=== PATIENT | female | born 1935 | race Caucasian/White ===

== ENCOUNTER 2018-06-21 18:29 | Emergency (ER) | payer MEDICARE ==
[2018-06-21] MEDS ORDERED: Promethazine HCl 25 MG/ML VIAL ONE (19:22)
[2018-06-21] MEDS ORDERED: Sodium Chloride 0.9% 1,000 ML ONE (19:22)
[2018-06-21] MEDS ORDERED: Ketorolac Tromethamine 30 MG/ML VIAL ONE (19:22)
--- NOTE | 2018-06-21 19:56 | CT ---
CT BRAIN 06/21/18 HISTORY: Headache. Noncontrast enhanced CT images of the brain is obtained from base of skull through the vertex. Brain and bone windows obtained. CT images of the brain demonstrate diffuse cortical atrophy and deep white matter ischemic changes. No evidence of acute intracranial masses, hemorrhages, or strokes seen. Ventricles are of normal size . IMPRESSION: Normal CT brain. POS: [facility]
[2018-06-21 20:25] LABS: #Basophils 0.1 thou/uL (0.0-0.2); #Eosinphils 0.1 thou/uL (0.0-0.7); #Lymphocytes 3.9 thou/uL (1.20-3.40); #Monocytes 0.7 thou/uL (0.11-0.59); #Neutrophils 6.8 thou/uL (1.40-6.50); %Basophils 0.9 % (0.0-1.0); %Eosinophils 0.9 % (0.0-10.0); %Lymphocytes 33.6 % (21.0-51.0); %Neutrophils 58.6 % (42.0-75.0); Mean Corpuscular HGB CONC 32.2 g/dL (32.0-36.0); Mean Corpuscular Hemoglobin 28.1 pg (27.0-31.0); Mean Corpuscular Volume 87.3 fL (78.0-98.0); Mean Platelet Volume 7.7 fL (7.4-10.4); Platelet Count 156 thou/uL (130-400); RBC Distribution Width 12.3 % (11.5-14.5); Red Blood Cell (RBC) Count 4.26 mill/uL (4.20-5.40); White Blood Cell (WBC) Count 11.7 thou/uL (4.8-10.8)
--- NOTE | 2018-06-21 20:26 | RAD ---
AP VIEW CHEST 06/21/18 AP view chest demonstrates the lungs to be well aerated. No evidence of active intrathoracic disease seen. No evidence of effusions, pneumonia or pneumothorax seen. IMPRESSION: Unremarkable AP view chest. POS: [facility]
[2018-06-21 20:31] LABS: Bilirubin Negative (Negative); Blood, Urine Negative (Negative); Clarity Clear (Clear); Glucose, Urine (Dipstick) Negative (Negative); Leukocyte Negative (Negative); Nitrite Negative (Negative); Protein, Urine (Dipstick) Negative (Neg-Trace); Urobilinogen 0.2 mg/dL (0.2-1.0)
[2018-06-21 20:36] LABS: ALT (SGPT) 15 U/L (8-55); AST (SGOT) 18 U/L (5-34); Albumin 4.6 g/dL (3.4-4.8); Alkaline Phosphatase 89 U/L (40-150); Anion Gap 17 mmol/L (10-20); BUN (Urea Nitrogen) 24 mg/dL (9.8-20.1); Bilirubin, Total 0.4 mg/dL (0.2-1.2); Calc. Creatinine Clearance 0 mL/min (70-130); Calcium 9.6 mg/dL (7.8-10.44); Carbon Dioxide 17 mmol/L (23-31); Chloride 97 mmol/L (98-107); Estimated GFR-MDRD 43; Glucose 96 mg/dL (83-110); Potassium 4.3 mmol/L (3.5-5.1); Protein, Total 7.6 g/dL (6.0-8.3); Sodium 127 mmol/L (136-145)
[2018-06-21] MEDS ORDERED: Acetaminophen 500 MG TAB ONE (22:19)
[2018-06-21 22:41] LABS: Anion Gap 14 mmol/L (10-20); BUN (Urea Nitrogen) 23 mg/dL (9.8-20.1); Calc. Creatinine Clearance 0 mL/min (70-130); Calcium 8.7 mg/dL (7.8-10.44); Carbon Dioxide 17 mmol/L (23-31); Chloride 102 mmol/L (98-107); Estimated GFR-MDRD 45; Glucose 113 mg/dL (83-110); Potassium 4.1 mmol/L (3.5-5.1); Sodium 129 mmol/L (136-145)
== END 2018-06-21 23:45 | disposition short-term general hospital (02) ==
LOC: NAV ERS 18:29
DX: E87.1 Hypo-osmolality and hyponatremia (principal); E87.2 Acidosis; R51 Headache; E03.9 Hypothyroidism, unspecified; I10 Essential (primary) hypertension; Z86.73 Personal history of transient ischemic attack (TIA), and cerebral infarction without residual deficits; F41.9 Anxiety disorder, unspecified; Z79.899 Other long term (current) drug therapy
CPT/HCPCS: 36415; 51701; 70450; 71045; 80053; 81003; 84484; 85025; 93005; 96361; 96365; 96375; A4353; J1885; J2550; J7050

== ENCOUNTER 2022-03-24 17:26 | Emergency (ER) | payer OTHER ==
[2022-03-24 18:45] LABS: #Basophils 0.1 thou/uL (0.0-0.2); #Eosinphils 0.1 thou/uL (0.0-0.7); #Lymphocytes 3.1 thou/uL (1.20-3.40); #Monocytes 0.6 thou/uL (0.11-0.59); #Neutrophils 5.6 thou/uL (1.40-6.50); %Lymphocytes 32.7 % (21.0-51.0); %Monocytes 6.4 % (0.0-10.0); %Neutrophils 58.9 % (42.0-75.0); Mean Corpuscular HGB CONC 32.7 g/dL (32.0-36.0); Mean Corpuscular Hemoglobin 29.8 pg (27.0-31.0); Mean Corpuscular Volume 91.4 fl (78.0-98.0); Mean Platelet Volume 7.2 fL (7.4-10.4); Platelet Count 213 10x3/uL (130-400); RBC Distribution Width 11.2 % (11.5-14.5); Red Blood Cell (RBC) Count 4.35 mill/uL (4.20-5.40); White Blood Cell (WBC) Count 9.5 10x3/uL (4.8-10.8)
[2022-03-24] MEDS ORDERED: Acetaminophen 500 MG TAB ONE (18:56)
[2022-03-24 19:13] LABS: SARS-CoV-2 NAA Rapid Test Not Detected (NotDetected)
[2022-03-24 19:25] LABS: ALT (SGPT) 12 U/L (8-55); AST (SGOT) 14 U/L (5-34); Albumin 4.5 g/dL (3.4-4.8); Alkaline Phosphatase 75 U/L (40-110); Anion Gap 17 mmol/L (10-20); BUN (Urea Nitrogen) 20 mg/dL (9.8-20.1); Bilirubin, Total 0.5 mg/dL (0.2-1.2); Calc. Creatinine Clearance 0 mL/min (70-130); Calcium 10.2 mg/dL (7.8-10.44); Carbon Dioxide 23 mmol/L (23-31); Chloride 97 mmol/L (98-107); Estimated GFR 36; Globulin 2.9 g/dL (2.4-3.5); Glucose 103 mg/dL (83-110); Potassium 3.8 mmol/L (3.5-5.1); Protein, Total 7.4 g/dL (5.8-8.1); Sodium 133 mmol/L (136-145)
[2022-03-24] MEDS ORDERED: Albuterol Sulfate 2.5 mg/0.5 ml Neb ONE (19:55)
[2022-03-24] MEDS ORDERED: Sodium Chloride 0.9% 1,000 ML ONE (19:55)
[2022-03-24 19:56] LABS: Bilirubin Negative (Negative); Blood, Urine Negative (Negative); Glucose, Urine (Dipstick) Negative (Negative); Ketone, Urine Negative (Negative); Leukocyte Small (Negative); Nitrite Negative (Negative); Protein, Urine (Dipstick) Negative (Neg-Trace); Specific Gravity, Urine 1.015 (1.005-1.030); Urobilinogen 0.2 mg/dL (Less than 2); pH, Urine 7.5 (5.0-9.0)
[2022-03-24 19:57] LABS: Clarity SL HAZY (Clear)
[2022-03-24 20:02] LABS: Renal Epithelial 0-3 HPF (None Seen); Squamous Epithelial 0-3 HPF (0-3); WBC/HPF 0-3 HPF (0-3)
== END 2022-03-24 22:29 | disposition home or self-care (01) ==
LOC: NAV ERS 17:26
DX: E86.9 Volume depletion, unspecified (principal); I10 Essential (primary) hypertension; E03.9 Hypothyroidism, unspecified; Z79.899 Other long term (current) drug therapy
CPT/HCPCS: 71045; 80053; 81003; 81015; 83605; 85025; 87040; 87086; 87804; 96360; J7050; J7611; U0002

== ENCOUNTER 2022-05-26 18:16 | Emergency (ER) | payer OTHER ==
[~2022-05-26 18:16] MED LIST: Iopamidol 370 76% 100 ML VIAL ONE
[2022-05-26 19:04] LABS: #Basophils 0.1 thou/uL (0.0-0.2); #Eosinphils 0.1 thou/uL (0.0-0.7); #Lymphocytes 2.9 thou/uL (1.20-3.40); #Monocytes 0.7 thou/uL (0.11-0.59); #Neutrophils 6.3 thou/uL (1.40-6.50); %Basophils 0.9 % (0.0-1.0); %Eosinophils 1.2 % (0.0-10.0); %Lymphocytes 28.6 % (21.0-51.0); %Monocytes 7.3 % (0.0-10.0); %Neutrophils 62.1 % (42.0-75.0); Mean Corpuscular HGB CONC 33.7 g/dL (32.0-36.0); Mean Platelet Volume 7.8 fL (7.4-10.4); Platelet Count 210 10x3/uL (130-400); RBC Distribution Width 12.1 % (11.5-14.5); Red Blood Cell (RBC) Count 3.89 mill/uL (4.20-5.40); White Blood Cell (WBC) Count 10.1 10x3/uL (4.8-10.8)
[2022-05-26 19:26] LABS: D-Dimer Test 0.39 *mcg/mL (0.27-0.43); INR-International Normal Ratio 0.9; PTT 29.1 sec (22.9-36.1); Prothrombin Time 12.8 sec (12.0-14.7)
[2022-05-26 19:30] LABS: ALT (SGPT) 19 U/L (8-55); AST (SGOT) 14 U/L (5-34); Albumin 4.3 g/dL (3.4-4.8); Alkaline Phosphatase 89 U/L (40-110); Anion Gap 16 mmol/L (10-20); BUN (Urea Nitrogen) 21 mg/dL (9.8-20.1); Bilirubin, Total 0.3 mg/dL (0.2-1.2); CK (CPK) 51 U/L (29-168); Calc. Creatinine Clearance 0 mL/min (70-130); Calcium 8.9 mg/dL (7.8-10.44); Carbon Dioxide 23 mmol/L (23-31); Chloride 95 mmol/L (98-107); Estimated GFR 40; Globulin 2.5 g/dL (2.4-3.5); Glucose 106 mg/dL (83-110); Lipase 37 U/L (8-78); Magnesium 1.8 mg/dL (1.6-2.6); Potassium 4.3 mmol/L (3.5-5.1); Protein, Total 6.8 g/dL (5.8-8.1); Sodium 130 mmol/L (136-145)
[2022-05-26] MEDS ORDERED: Ketorolac Tromethamine 30 MG/ML VIAL ONE (19:36)
[2022-05-26] MEDS ORDERED: Morphine 4 MG/ML VIAL ONE (19:36)
[2022-05-26] MEDS ORDERED: Mag-Al Plus 1200 MG/1200 MG/120 MG/30 ML UDCUP ONE (19:36)
[2022-05-26] MEDS ORDERED: Lidocaine Viscous Sol 2% 15 ml UD Cup ONE (19:36)
[2022-05-26 19:44] LABS: Bilirubin Negative (Negative); Blood, Urine Trace (Negative); Clarity Clear (Clear); Glucose, Urine (Dipstick) Negative (Negative); Ketone, Urine Trace mg/dL (Negative); Leukocyte Large (Negative); Nitrite Negative (Negative); Protein, Urine (Dipstick) Negative (Neg-Trace); Urobilinogen 0.2 mg/dL (Less than 2); pH, Urine 5.5 (5.0-9.0)
[2022-05-26 19:47] LABS: Bacteria/HPF 1+ HPF (None Seen); WBC/HPF Greater Than 50 HPF (0-3)
[2022-05-26] MEDS ORDERED: cefTRIAXone\\ROCEPHIN 1 GM VIAL ONE (21:34)
[2022-05-26] MEDS ORDERED: Sodium Chloride 0.9% 100 ML ONE (21:34)
== END 2022-05-26 22:23 | disposition home or self-care (01) ==
LOC: NAV ERS 18:16
DX: R07.89 Other chest pain (principal); M79.601 Pain in right arm; N39.0 Urinary tract infection, site not specified; I10 Essential (primary) hypertension; E03.9 Hypothyroidism, unspecified
CPT/HCPCS: 36415; 71045; 74177; 80053; 81003; 81015; 82550; 83605; 83690; 83735; 83880; 84443; 84484; 85025; 85379; 85610; 85730; 87086; 93005; 96365; 96375; J0696; J1885; J2270; J3490; Q9967

== ENCOUNTER 2022-06-10 18:40 | Emergency (ER) | payer OTHER ==
[2022-06-10 19:27] LABS: #Basophils 0.1 thou/uL (0.0-0.2); #Eosinphils 0.1 thou/uL (0.0-0.7); #Lymphocytes 2.9 thou/uL (1.20-3.40); #Monocytes 0.9 thou/uL (0.11-0.59); #Neutrophils 6.6 thou/uL (1.40-6.50); %Basophils 0.6 % (0.0-1.0); %Eosinophils 0.7 % (0.0-10.0); %Lymphocytes 27.4 % (21.0-51.0); %Monocytes 8.6 % (0.0-10.0); %Neutrophils 62.6 % (42.0-75.0); Hemoglobin 11.8 g/dL (12.0-16.0); Mean Corpuscular HGB CONC 34.6 g/dL (32.0-36.0); Mean Corpuscular Hemoglobin 30.8 pg (27.0-31.0); Mean Corpuscular Volume 89.1 fl (78.0-98.0); Mean Platelet Volume 7.4 fL (7.4-10.4); Platelet Count 236 10x3/uL (130-400); RBC Distribution Width 11.5 % (11.5-14.5); Red Blood Cell (RBC) Count 3.81 mill/uL (4.20-5.40); White Blood Cell (WBC) Count 10.6 10x3/uL (4.8-10.8)
[2022-06-10 19:30] LABS: ALT (SGPT) 21 U/L (8-55); AST (SGOT) 14 U/L (5-34); Albumin 4.3 g/dL (3.4-4.8); Alkaline Phosphatase 77 U/L (40-110); Anion Gap 18 mmol/L (10-20); BUN (Urea Nitrogen) 23 mg/dL (9.8-20.1); Bilirubin, Total 0.3 mg/dL (0.2-1.2); Calc. Creatinine Clearance 0 mL/min (70-130); Calcium 9.6 mg/dL (7.8-10.44); Carbon Dioxide 20 mmol/L (23-31); Chloride 93 mmol/L (98-107); Estimated GFR 37; Globulin 2.7 g/dL (2.4-3.5); Glucose 108 mg/dL (83-110); Sodium 127 mmol/L (136-145)
[2022-06-10] MEDS ORDERED: Sodium Chloride 0.9% 1,000 ML ONE (21:01)
[2022-06-10 23:07] LABS: Troponin I Less than 0.010 ng/mL (< 0.028)
== END 2022-06-10 23:00 | disposition short-term general hospital (02) ==
LOC: NAV ERS 18:40
DX: R07.89 Other chest pain (principal); F03.90 Unspecified dementia, unspecified severity, without behavioral disturbance, psychotic disturbance, mood disturbance, and anxiety; E87.1 Hypo-osmolality and hyponatremia; I10 Essential (primary) hypertension; E03.9 Hypothyroidism, unspecified; Z86.73 Personal history of transient ischemic attack (TIA), and cerebral infarction without residual deficits; Z79.899 Other long term (current) drug therapy
CPT/HCPCS: 36415; 71045; 80053; 83880; 84484; 85025; 93005; J7050

== ENCOUNTER 2022-06-20 11:47 | Observation (INO) | payer OTHER ==
[2022-06-20] MEDS ORDERED: traMADol HCl 50 MG TAB ONE (12:21)
[2022-06-20 14:40] LABS: #Eosinphils 0.1 thou/uL (0.0-0.7); #Lymphocytes 1.8 thou/uL (1.20-3.40); #Monocytes 0.4 thou/uL (0.11-0.59); %Basophils 0.4 % (0.0-1.0); %Eosinophils 0.9 % (0.0-10.0); %Lymphocytes 19.6 % (21.0-51.0); %Monocytes 4.3 % (0.0-10.0); %Neutrophils 74.8 % (42.0-75.0); Hemoglobin 13.3 g/dL (12.0-16.0); Mean Corpuscular HGB CONC 33.8 g/dL (32.0-36.0); Mean Corpuscular Hemoglobin 30.5 pg (27.0-31.0); Mean Corpuscular Volume 90.2 fl (78.0-98.0); Mean Platelet Volume 7.4 fL (7.4-10.4); Platelet Count 232 10x3/uL (130-400); RBC Distribution Width 11.4 % (11.5-14.5); Red Blood Cell (RBC) Count 4.35 mill/uL (4.20-5.40); White Blood Cell (WBC) Count 9.4 10x3/uL (4.8-10.8)
[2022-06-20 14:53] LABS: Bilirubin Negative (Negative); Blood, Urine Negative (Negative); Clarity Clear (Clear); Glucose, Urine (Dipstick) Negative (Negative); Ketone, Urine Negative (Negative); Leukocyte Negative (Negative); Nitrite Negative (Negative); Protein, Urine (Dipstick) Negative (Neg-Trace); Specific Gravity, Urine 1.015 (1.005-1.030); Urobilinogen 0.2 mg/dL (Less than 2)
[2022-06-20 14:55] LABS: ALT (SGPT) 22 U/L (8-55); AST (SGOT) 19 U/L (5-34); Albumin 4.8 g/dL (3.4-4.8); Alkaline Phosphatase 75 U/L (40-110); Anion Gap 19 mmol/L (10-20); BUN (Urea Nitrogen) 16 mg/dL (9.8-20.1); Bilirubin, Total 0.5 mg/dL (0.2-1.2); Calc. Creatinine Clearance 0 mL/min (70-130); Carbon Dioxide 25 mmol/L (23-31); Chloride 94 mmol/L (98-107); Estimated GFR 42; Globulin 3.1 g/dL (2.4-3.5); Glucose 99 mg/dL (83-110); Potassium 3.9 mmol/L (3.5-5.1); Protein, Total 7.9 g/dL (5.8-8.1); Sodium 134 mmol/L (136-145)
[2022-06-20] MEDS ORDERED: Sodium Chloride 0.9% 1,000 ML ONE (15:20)
[2022-06-20] MEDS ORDERED: Calcium Carbonate 500 MG ChewTAB PO PRN (15:26)
[2022-06-20] MEDS ORDERED: Senokot S 8.6-50 MG TAB PO PRN (15:26)
[2022-06-20] MEDS ORDERED: Ondansetron ODT 4 MG TAB PO PRN (15:26)
[2022-06-20] MEDS ORDERED: Acetaminophen 325 MG TAB PO PRN (15:26)
[2022-06-20] MEDS ORDERED: hydrALAZINE 25 MG TAB PO PRN (16:27)
[2022-06-20] MEDS ORDERED: Losartan 25 MG TAB PO SCH (16:30)
[2022-06-20 16:48] VITALS: BMI 31.2
[2022-06-20] MEDS: Carvedilol 3.125 MG TAB PO SCH (17:28)
[2022-06-20] MEDS ORDERED: Labetalol HCl 100 MG/20 ML VIAL SLOW IVP PRN (18:09)
[2022-06-20] MEDS ORDERED: Polyethylene Glycol 3350 17 GM Packet PO SCH (18:15)
[2022-06-20] MEDS ORDERED: Famotidine 20 MG TAB PO SCH (21:00)
[2022-06-20] MEDS ORDERED: Amitriptyline HCl 25 MG TAB PO SCH (21:00)
[2022-06-21] MEDS ORDERED: hydrOXYzine 25 MG TAB PO SCH (05:00)
[2022-06-21] MEDS ORDERED: Levothyroxine Sodium 75 MCG TAB PO SCH (06:00)
[2022-06-21] MEDS: Carvedilol 3.125 MG TAB PO SCH ×2 (08:54→16:16)
[2022-06-21] MEDS ORDERED: Polyethylene Glycol 3350 17 GM Packet PO SCH (09:00)
[2022-06-21] MEDS ORDERED: Furosemide 20 MG TAB PO SCH (09:00)
[2022-06-21] MEDS ORDERED: Bupropion 150 MG XL TAB PO SCH (09:00)
[2022-06-21] MEDS ORDERED: Losartan 25 MG TAB PO SCH (09:00)
[2022-06-21] MEDS ORDERED: Aspirin Chewable 81 MG TAB PO SCH (09:00)
[2022-06-21 15:07] LABS: #Basophils 0.1 thou/uL (0.0-0.2); #Eosinphils 0.1 thou/uL (0.0-0.7); #Lymphocytes 2.5 thou/uL (1.20-3.40); #Monocytes 0.7 thou/uL (0.11-0.59); #Neutrophils 5.5 thou/uL (1.40-6.50); %Basophils 0.8 % (0.0-1.0); %Eosinophils 1.4 % (0.0-10.0); %Lymphocytes 27.4 % (21.0-51.0); %Monocytes 8.3 % (0.0-10.0); %Neutrophils 62.1 % (42.0-75.0); Hemoglobin 12.7 g/dL (12.0-16.0); Mean Corpuscular HGB CONC 33.9 g/dL (32.0-36.0); Mean Corpuscular Hemoglobin 30.7 pg (27.0-31.0); Mean Corpuscular Volume 90.6 fl (78.0-98.0); Mean Platelet Volume 7.1 fL (7.4-10.4); Platelet Count 211 10x3/uL (130-400); RBC Distribution Width 11.7 % (11.5-14.5); Red Blood Cell (RBC) Count 4.13 mill/uL (4.20-5.40); White Blood Cell (WBC) Count 8.9 10x3/uL (4.8-10.8)
[2022-06-21 15:52] LABS: Anion Gap 18 mmol/L (10-20); BUN (Urea Nitrogen) 17 mg/dL (9.8-20.1); Calc. Creatinine Clearance 42 mL/min (70-130); Calcium 9.4 mg/dL (7.8-10.44); Carbon Dioxide 22 mmol/L (23-31); Chloride 94 mmol/L (98-107); Estimated GFR 43; Glucose 129 mg/dL (83-110); Potassium 4.7 mmol/L (3.5-5.1); Sodium 129 mmol/L (136-145)
[2022-06-21 16:15] VITALS: BP 124/81; TEMP 98.1
[2022-06-21] MEDS ORDERED: Famotidine 20 MG TAB PO SCH (21:00)
== END 2022-06-21 18:23 | disposition swing bed (61) ==
LOC: NAV ERS 11:47 → NAV ACUTE 16:03 → UNDOADMIN 16:03 → NAV ACUTE 16:03
PROVIDERS: ADMIT Family Medicine; ATTEND Family Medicine
DX: R53.1 Weakness (principal); R29.6 Repeated falls; F03.90 Unspecified dementia, unspecified severity, without behavioral disturbance, psychotic disturbance, mood disturbance, and anxiety; I10 Essential (primary) hypertension; K59.00 Constipation, unspecified; M79.7 Fibromyalgia; F32.A Depression, unspecified; F41.9 Anxiety disorder, unspecified; E03.9 Hypothyroidism, unspecified; Z86.73 Personal history of transient ischemic attack (TIA), and cerebral infarction without residual deficits; Z79.82 Long term (current) use of aspirin; Z79.890 Hormone replacement therapy; Z79.899 Other long term (current) drug therapy; Z88.8 Allergy status to other drugs, medicaments and biological substances
CPT/HCPCS: 70450; 72125; 72131; 72192; 73130 ×2; 80048; 81003; 85025; 96372; 97535; 99285; G0378 ×3; 36415; 80053; 84443; J1650; J7050

== ENCOUNTER 2022-06-21 15:48 | Inpatient (IN) | payer OTHER ==
[2022-06-21] MEDS ORDERED: Calcium Carbonate 500 MG ChewTAB PO PRN (19:09)
[2022-06-21] MEDS ORDERED: Ondansetron ODT 4 MG TAB SL PRN (19:10)
[2022-06-21] MEDS ORDERED: cloNIDine 0.1 MG TAB PO PRN (20:33)
[2022-06-21] MEDS: Famotidine 20 MG TAB PO SCH (20:39)
[2022-06-21] MEDS: Acetaminophen 325 MG TAB PO PRN (20:40)
[2022-06-21] MEDS: Amitriptyline HCl 25 MG TAB PO SCH (20:43)
[2022-06-22 05:57] LABS: ALT (SGPT) 17 U/L (8-55); AST (SGOT) 12 U/L (5-34); Albumin 3.7 g/dL (3.4-4.8); Alkaline Phosphatase 62 U/L (40-110); Anion Gap 16 mmol/L (10-20); BUN (Urea Nitrogen) 18 mg/dL (9.8-20.1); Bilirubin, Total 0.4 mg/dL (0.2-1.2); Calc. Creatinine Clearance 0 mL/min (70-130); Calcium 8.9 mg/dL (7.8-10.44); Carbon Dioxide 23 mmol/L (23-31); Chloride 94 mmol/L (98-107); Estimated GFR 45; Globulin 2.3 g/dL (2.4-3.5); Glucose 104 mg/dL (83-110); Potassium 4.3 mmol/L (3.5-5.1); Sodium 129 mmol/L (136-145)
[2022-06-22 06:15] LABS: #Basophils 0.1 thou/uL (0.0-0.2); #Eosinphils 0.1 thou/uL (0.0-0.7); #Lymphocytes 2.4 thou/uL (1.20-3.40); #Monocytes 0.7 thou/uL (0.11-0.59); #Neutrophils 3.6 thou/uL (1.40-6.50); %Basophils 1.2 % (0.0-1.0); %Eosinophils 2.1 % (0.0-10.0); %Lymphocytes 34.9 % (21.0-51.0); %Monocytes 9.5 % (0.0-10.0); %Neutrophils 52.4 % (42.0-75.0); Hemoglobin 11.1 g/dL (12.0-16.0); Mean Corpuscular HGB CONC 34.9 g/dL (32.0-36.0); Mean Corpuscular Hemoglobin 31.1 pg (27.0-31.0); Mean Corpuscular Volume 89.1 fl (78.0-98.0); Mean Platelet Volume 7.4 fL (7.4-10.4); Platelet Count 192 10x3/uL (130-400); RBC Distribution Width 11.4 % (11.5-14.5); Red Blood Cell (RBC) Count 3.55 mill/uL (4.20-5.40); White Blood Cell (WBC) Count 6.8 10x3/uL (4.8-10.8)
[2022-06-22] MEDS: Carvedilol 3.125 MG TAB PO SCH ×2 (08:13→18:11)
[2022-06-22] MEDS: Furosemide 20 MG TAB PO SCH (08:13)
[2022-06-22] MEDS: Aspirin Chewable 81 MG TAB PO SCH (08:13)
[2022-06-22] MEDS: Levothyroxine Sodium 75 MCG TAB PO SCH (08:14)
[2022-06-22] MEDS: Losartan 25 MG TAB PO SCH (08:14)
[2022-06-22] MEDS: Bupropion 150 MG XL TAB PO SCH (08:14)
[2022-06-22] MEDS: Bisacodyl 5 MG TAB PO PRN (18:11)
[2022-06-22] MEDS: Senokot S 8.6-50 MG TAB PO PRN (18:11)
[2022-06-22] MEDS: Famotidine 20 MG TAB PO SCH (20:38)
[2022-06-22] MEDS: Amitriptyline HCl 25 MG TAB PO SCH (20:39)
[2022-06-22] MEDS: Acetaminophen 325 MG TAB PO PRN (20:40)
[2022-06-23] MEDS: Aspirin Chewable 81 MG TAB PO SCH (07:57)
[2022-06-23] MEDS: Losartan 25 MG TAB PO SCH (07:57)
[2022-06-23] MEDS: Carvedilol 3.125 MG TAB PO SCH ×2 (07:57→17:23)
[2022-06-23] MEDS: Levothyroxine Sodium 75 MCG TAB PO SCH (07:57)
[2022-06-23] MEDS: Furosemide 20 MG TAB PO SCH (07:57)
[2022-06-23] MEDS: Bupropion 150 MG XL TAB PO SCH (08:02)
[2022-06-23] MEDS: Famotidine 20 MG TAB PO SCH (20:44)
[2022-06-23] MEDS: Acetaminophen 325 MG TAB PO PRN (20:44)
[2022-06-23] MEDS: Amitriptyline HCl 25 MG TAB PO SCH (20:44)
[2022-06-23] MEDS: Bisacodyl 5 MG TAB PO PRN (20:44)
[2022-06-24] MEDS: Aspirin Chewable 81 MG TAB PO SCH (07:49)
[2022-06-24] MEDS: Levothyroxine Sodium 75 MCG TAB PO SCH (07:49)
[2022-06-24] MEDS: Bupropion 150 MG XL TAB PO SCH (07:49)
[2022-06-24] MEDS: Furosemide 20 MG TAB PO SCH (07:50)
[2022-06-24] MEDS: Carvedilol 3.125 MG TAB PO SCH ×2 (07:50→17:17)
[2022-06-24] MEDS: Losartan 25 MG TAB PO SCH (07:50)
[2022-06-24] MEDS: Senokot S 8.6-50 MG TAB PO PRN (07:50)
[2022-06-24] MEDS ORDERED: Bisacodyl 10 MG SUPP PR PRN (09:14)
[2022-06-24] MEDS: Amitriptyline HCl 25 MG TAB PO SCH (21:21)
[2022-06-24] MEDS: Famotidine 20 MG TAB PO SCH (21:22)
[2022-06-25] MEDS: Furosemide 20 MG TAB PO SCH (08:20)
[2022-06-25] MEDS: Losartan 25 MG TAB PO SCH (08:20)
[2022-06-25] MEDS: Bupropion 150 MG XL TAB PO SCH (08:21)
[2022-06-25] MEDS: Levothyroxine Sodium 75 MCG TAB PO SCH (08:21)
[2022-06-25] MEDS: Carvedilol 3.125 MG TAB PO SCH ×2 (08:21→17:21)
[2022-06-25] MEDS: Aspirin Chewable 81 MG TAB PO SCH (08:21)
[2022-06-25] MEDS: Acetaminophen 325 MG TAB PO PRN (20:57)
[2022-06-25] MEDS: Famotidine 20 MG TAB PO SCH (20:58)
[2022-06-25] MEDS: Amitriptyline HCl 25 MG TAB PO SCH (20:59)
[2022-06-26] MEDS: Levothyroxine Sodium 75 MCG TAB PO SCH (05:39)
[2022-06-26] MEDS: Losartan Potassium 50 MG TAB PO SCH (08:45)
[2022-06-26] MEDS: Furosemide 40 MG TAB PO SCH (08:45)
[2022-06-26] MEDS: Carvedilol 3.125 MG TAB PO SCH ×2 (08:45→17:10)
[2022-06-26] MEDS: Bupropion 150 MG XL TAB PO SCH (08:46)
[2022-06-26] MEDS: Aspirin Chewable 81 MG TAB PO SCH (08:46)
[2022-06-26] MEDS: Acetaminophen 325 MG TAB PO PRN ×2 (12:04→21:50)
[2022-06-26] MEDS: Amitriptyline HCl 25 MG TAB PO SCH (21:50)
[2022-06-26] MEDS: Famotidine 20 MG TAB PO SCH (21:50)
[2022-06-27 06:48] VITALS: BMI 30.8
[2022-06-27] MEDS: Levothyroxine Sodium 75 MCG TAB PO SCH (06:50)
[2022-06-27] MEDS: Losartan Potassium 50 MG TAB PO SCH (08:35)
[2022-06-27] MEDS: Bupropion 150 MG XL TAB PO SCH (08:35)
[2022-06-27] MEDS: Aspirin Chewable 81 MG TAB PO SCH (08:36)
[2022-06-27] MEDS: Carvedilol 3.125 MG TAB PO SCH ×2 (08:36→17:03)
[2022-06-27] MEDS: Senokot S 8.6-50 MG TAB PO PRN (08:36)
[2022-06-27] MEDS: Furosemide 40 MG TAB PO SCH (08:36)
[2022-06-27] MEDS: Famotidine 20 MG TAB PO SCH (20:18)
[2022-06-27] MEDS: Amitriptyline HCl 25 MG TAB PO SCH (20:18)
[2022-06-27] MEDS: Bisacodyl 5 MG TAB PO PRN (20:18)
[2022-06-27] MEDS: Acetaminophen 325 MG TAB PO PRN (20:19)
[2022-06-28] MEDS: Levothyroxine Sodium 75 MCG TAB PO SCH (05:06)
[2022-06-28 05:44] LABS: #Basophils 0.1 thou/uL (0.0-0.2); #Eosinphils 0.1 thou/uL (0.0-0.7); #Lymphocytes 2.4 thou/uL (1.20-3.40); #Monocytes 0.7 thou/uL (0.11-0.59); #Neutrophils 4.5 thou/uL (1.40-6.50); %Basophils 0.7 % (0.0-1.0); %Eosinophils 1.5 % (0.0-10.0); %Lymphocytes 30.8 % (21.0-51.0); %Monocytes 9.4 % (0.0-10.0); %Neutrophils 57.6 % (42.0-75.0); Hemoglobin 11.5 g/dL (12.0-16.0); Mean Corpuscular HGB CONC 34.4 g/dL (32.0-36.0); Mean Corpuscular Hemoglobin 30.8 pg (27.0-31.0); Mean Corpuscular Volume 89.5 fl (78.0-98.0); Mean Platelet Volume 7.2 fL (7.4-10.4); Platelet Count 165 10x3/uL (130-400); RBC Distribution Width 11.2 % (11.5-14.5); Red Blood Cell (RBC) Count 3.74 mill/uL (4.20-5.40); White Blood Cell (WBC) Count 7.8 10x3/uL (4.8-10.8)
[2022-06-28 05:47] LABS: Anion Gap 17 mmol/L (10-20); BUN (Urea Nitrogen) 29 mg/dL (9.8-20.1); Calc. Creatinine Clearance 42 mL/min (70-130); Calcium 9.5 mg/dL (7.8-10.44); Carbon Dioxide 25 mmol/L (23-31); Chloride 91 mmol/L (98-107); Estimated GFR 43; Glucose 96 mg/dL (83-110); Potassium 4.2 mmol/L (3.5-5.1); Sodium 129 mmol/L (136-145)
[2022-06-28] MEDS: Acetaminophen 325 MG TAB PO PRN ×3 (08:34→21:43)
[2022-06-28] MEDS: Carvedilol 3.125 MG TAB PO SCH ×2 (08:36→16:55)
[2022-06-28] MEDS: Bupropion 150 MG XL TAB PO SCH (08:36)
[2022-06-28] MEDS: Losartan Potassium 50 MG TAB PO SCH (08:36)
[2022-06-28] MEDS: Furosemide 40 MG TAB PO SCH (08:36)
[2022-06-28] MEDS: Aspirin Chewable 81 MG TAB PO SCH (08:36)
[2022-06-28] MEDS: Amitriptyline HCl 25 MG TAB PO SCH (20:10)
[2022-06-28] MEDS: Famotidine 20 MG TAB PO SCH (20:10)
[2022-06-29] MEDS: Levothyroxine Sodium 75 MCG TAB PO SCH (05:12)
[2022-06-29] MEDS: Bupropion 150 MG XL TAB PO SCH (08:43)
[2022-06-29] MEDS: Losartan Potassium 50 MG TAB PO SCH (08:43)
[2022-06-29] MEDS: Carvedilol 3.125 MG TAB PO SCH ×2 (08:43→16:57)
[2022-06-29] MEDS: Furosemide 40 MG TAB PO SCH (08:44)
[2022-06-29] MEDS: Aspirin Chewable 81 MG TAB PO SCH (08:44)
[2022-06-29] MEDS: Acetaminophen 325 MG TAB PO PRN (18:32)
[2022-06-29] MEDS: Famotidine 20 MG TAB PO SCH (20:37)
[2022-06-29] MEDS: Amitriptyline HCl 25 MG TAB PO SCH (20:40)
[2022-06-30] MEDS: Levothyroxine Sodium 75 MCG TAB PO SCH (06:09)
[2022-06-30] MEDS: Losartan Potassium 50 MG TAB PO SCH (08:02)
[2022-06-30] MEDS: Carvedilol 3.125 MG TAB PO SCH ×2 (08:02→16:53)
[2022-06-30] MEDS: Acetaminophen 325 MG TAB PO PRN ×2 (08:02→21:38)
[2022-06-30] MEDS: Aspirin Chewable 81 MG TAB PO SCH (08:02)
[2022-06-30] MEDS: Furosemide 40 MG TAB PO SCH (08:02)
[2022-06-30] MEDS: Bupropion 150 MG XL TAB PO SCH (09:28)
[2022-06-30] MEDS: Famotidine 20 MG TAB PO SCH (20:43)
[2022-06-30] MEDS: Amitriptyline HCl 25 MG TAB PO SCH (20:43)
[2022-07-01] MEDS: Levothyroxine Sodium 75 MCG TAB PO SCH (05:21)
[2022-07-01] MEDS: Losartan Potassium 50 MG TAB PO SCH (09:00)
[2022-07-01] MEDS: Carvedilol 6.25 MG TAB PO SCH ×2 (09:00→17:27)
[2022-07-01] MEDS: Aspirin Chewable 81 MG TAB PO SCH (09:00)
[2022-07-01] MEDS: Furosemide 40 MG TAB PO SCH (09:01)
[2022-07-01] MEDS: Bupropion 150 MG XL TAB PO SCH (09:01)
[2022-07-01] MEDS: Acetaminophen 325 MG TAB PO PRN ×3 (09:05→20:13)
[2022-07-01] MEDS: Carvedilol 3.125 MG TAB PO SCH (09:08)
[2022-07-01] MEDS: Famotidine 20 MG TAB PO SCH (20:12)
[2022-07-01] MEDS: Amitriptyline HCl 25 MG TAB PO SCH (20:13)
[2022-07-02] MEDS: Levothyroxine Sodium 75 MCG TAB PO SCH (05:49)
[2022-07-02 06:22] LABS: #Basophils 0.1 thou/uL (0.0-0.2); #Eosinphils 0.2 thou/uL (0.0-0.7); #Lymphocytes 2.4 thou/uL (1.20-3.40); #Monocytes 0.9 thou/uL (0.11-0.59); #Neutrophils 5.3 thou/uL (1.40-6.50); %Basophils 1.4 % (0.0-1.0); %Lymphocytes 27.2 % (21.0-51.0); %Neutrophils 59.4 % (42.0-75.0); Hemoglobin 12.5 g/dL (12.0-16.0); Mean Corpuscular HGB CONC 33.6 g/dL (32.0-36.0); Mean Corpuscular Hemoglobin 30.2 pg (27.0-31.0); Mean Corpuscular Volume 89.9 fl (78.0-98.0); Mean Platelet Volume 7.3 fL (7.4-10.4); Platelet Count 212 10x3/uL (130-400); RBC Distribution Width 11.2 % (11.5-14.5); Red Blood Cell (RBC) Count 4.14 mill/uL (4.20-5.40)
[2022-07-02 06:27] LABS: Anion Gap 19 mmol/L (10-20); BUN (Urea Nitrogen) 36 mg/dL (9.8-20.1); Calc. Creatinine Clearance 38 mL/min (70-130); Carbon Dioxide 23 mmol/L (23-31); Chloride 93 mmol/L (98-107); Estimated GFR 38; Glucose 97 mg/dL (83-110); Potassium 4.4 mmol/L (3.5-5.1); Sodium 131 mmol/L (136-145)
[2022-07-02 08:24] VITALS: TEMP 97.9
[2022-07-02] MEDS: Losartan Potassium 50 MG TAB PO SCH (09:16)
[2022-07-02] MEDS: Senokot S 8.6-50 MG TAB PO PRN (09:16)
[2022-07-02] MEDS: Bupropion 150 MG XL TAB PO SCH (09:16)
[2022-07-02] MEDS: Furosemide 40 MG TAB PO SCH (09:16)
[2022-07-02] MEDS: Aspirin Chewable 81 MG TAB PO SCH (09:16)
[2022-07-02] MEDS: Carvedilol 6.25 MG TAB PO SCH ×2 (09:17→16:53)
[2022-07-02] MEDS: Acetaminophen 325 MG TAB PO PRN (16:51)
[2022-07-02 16:53] VITALS: BP 144/66
== END 2022-07-02 17:28 | disposition home or self-care (01) | DRG 948 ==
LOC: NAV ACUTE 18:30
PROVIDERS: ADMIT Family Medicine; ATTEND Family Medicine
DX: R53.81 Other malaise (principal); E87.1 Hypo-osmolality and hyponatremia; R53.1 Weakness; K59.00 Constipation, unspecified; F32.A Depression, unspecified; F41.9 Anxiety disorder, unspecified; N18.32 Chronic kidney disease, stage 3b; I12.9 Hypertensive chronic kidney disease with stage 1 through stage 4 chronic kidney disease, or unspecified chronic kidney disease; G30.9 Alzheimer's disease, unspecified; F02.80 Dementia in other diseases classified elsewhere, unspecified severity, without behavioral disturbance, psychotic disturbance, mood disturbance, and anxiety; M79.7 Fibromyalgia; E03.9 Hypothyroidism, unspecified; Z90.710 Acquired absence of both cervix and uterus; Z90.49 Acquired absence of other specified parts of digestive tract; Z82.49 Family history of ischemic heart disease and other diseases of the circulatory system; Z82.3 Family history of stroke; Z88.8 Allergy status to other drugs, medicaments and biological substances; Z79.82 Long term (current) use of aspirin; Z79.899 Other long term (current) drug therapy; Z79.890 Hormone replacement therapy
CPT/HCPCS: 36415; 36416; 80048; 80053; 85025; J1650; Q0162

== ENCOUNTER 2022-12-03 12:46 | Emergency (ER) | payer MEDICARE, OTHER ==
[2022-12-03] MEDS ORDERED: Nitroglycerin 0.4 MG TAB (25 Tab Bottle) ONE (13:32)
[2022-12-03 13:36] LABS: #Basophils 0.1 thou/uL (0.0-0.2); #Eosinphils 0.1 thou/uL (0.0-0.7); #Lymphocytes 1.9 thou/uL (1.20-3.40); #Monocytes 0.7 thou/uL (0.11-0.59); %Basophils 0.9 % (0.0-1.0); %Eosinophils 1.2 % (0.0-10.0); %Lymphocytes 19.6 % (21.0-51.0); %Neutrophils 71.3 % (42.0-75.0); Hematocrit 34.4 % (36.0-47.0); Hemoglobin 11.5 g/dL (12.0-16.0); Mean Corpuscular HGB CONC 33.3 g/dL (32.0-36.0); Mean Corpuscular Hemoglobin 29.5 pg (27.0-31.0); Mean Corpuscular Volume 88.5 fl (78.0-98.0); Mean Platelet Volume 6.8 fL (7.4-10.4); Platelet Count 231 10x3/uL (130-400); RBC Distribution Width 11.5 % (11.5-14.5); Red Blood Cell (RBC) Count 3.89 mill/uL (4.20-5.40); White Blood Cell (WBC) Count 9.8 10x3/uL (4.8-10.8)
[2022-12-03 13:40] LABS: Base Excess-Venous 1.3 mmol/L (-2.0 to 3.0); Bicarbonate (HCO3v) 21.9 mmol/L (22.0-28.0); CO2 Tension (PvCO2) 23.7 mmHg (42.0-51.0); Calcium, Ionized 1.08 mmol/L (1.15-1.33); Chloride 102 mmol/L (98-107); Potassium 4.5 mmol/L (3.5-5.1); Sodium 133 mmol/L (138-145); T. Carbon Dioxide 22.6 mmol/L (22.0-28.0); vO2 Saturation-calc 99.8 % (60.0-85.0)
[2022-12-03 13:50] LABS: ALT (SGPT) 13 U/L (8-55); AST (SGOT) 12 U/L (5-34); Albumin 4.3 g/dL (3.4-4.8); Alkaline Phosphatase 81 U/L (40-110); Anion Gap 17 mmol/L (10-20); BUN (Urea Nitrogen) 17 mg/dL (9.8-20.1); Bilirubin, Total 0.5 mg/dL (0.2-1.2); Calc. Creatinine Clearance 0 mL/min (70-130); Calcium 9.4 mg/dL (7.8-10.44); Carbon Dioxide 19 mmol/L (23-31); Chloride 98 mmol/L (98-107); Estimated GFR 42; Globulin 2.8 g/dL (2.4-3.5); Glucose 95 mg/dL (83-110); Potassium 4.4 mmol/L (3.5-5.1); Protein, Total 7.1 g/dL (5.8-8.1); Sodium 130 mmol/L (136-145); Troponin I Less than 0.010 ng/mL (< 0.028)
[2022-12-03] MEDS ORDERED: Aspirin Chewable 81 MG TAB ONE (14:02)
[2022-12-03 14:20] LABS: Bilirubin Negative (Negative); Blood, Urine Negative (Negative); Clarity Clear (Clear); Glucose, Urine (Dipstick) Negative (Negative); Ketone, Urine Negative (Negative); Leukocyte Small (Negative); Nitrite Negative (Negative); Protein, Urine (Dipstick) Trace mg/dL (Neg-Trace); Specific Gravity, Urine 1.015 (1.005-1.030); Urobilinogen 0.2 mg/dL (Less than 2); pH, Urine 8.5 (5.0-9.0)
[2022-12-03 14:28] LABS: RBC/HPF None Seen HPF (0-3); Transitional Epithelial 0-3 HPF (None Seen)
[2022-12-03 14:30] LABS: Bacteria/HPF Rare-Few HPF (None Seen)
[2022-12-03 14:31] LABS: Urine Culture Reflex No No
[2022-12-03] MEDS ORDERED: Acetaminophen 500 MG TAB ONE (14:35)
[2022-12-03 15:02] LABS: SARS-CoV-2 NAA Rapid Test Not Detected (NotDetected)
[2022-12-03] MEDS ORDERED: Labetalol HCl 100 MG/20 ML VIAL ONE (16:08)
[2022-12-03] MEDS ORDERED: Sodium Chloride 0.9% 500 ML ONE (16:08)
[2022-12-03 16:57] LABS: Troponin I Less than 0.010 ng/mL (< 0.028)
== END 2022-12-03 17:05 | disposition home or self-care (01) ==
LOC: NAV ERS 12:46
DX: F45.8 Other somatoform disorders (principal); E87.3 Alkalosis; R07.9 Chest pain, unspecified; R06.02 Shortness of breath; E03.9 Hypothyroidism, unspecified; Z20.822 Contact with and (suspected) exposure to COVID-19; Z79.82 Long term (current) use of aspirin; Z79.899 Other long term (current) drug therapy
CPT/HCPCS: 36415; 71045; 71275; 74174; 80053; 81001; 82330; 82803; 83880; 84443; 84484; 85025; 85379; 93005; 96374; J7030; Q9967; U0002

== ENCOUNTER 2023-03-11 11:31 | Emergency (ER) | payer OTHER | END 2023-03-11 12:44 | disposition home or self-care (01) | LOC: NAV ERS 11:31 | DX: S46.912A Strain of unspecified muscle, fascia and tendon at shoulder and upper arm level, left arm, initial encounter (principal); R06.4 Hyperventilation; I10 Essential (primary) hypertension; Z86.73 Personal history of transient ischemic attack (TIA), and cerebral infarction without residual deficits; X50.0XXA Overexertion from strenuous movement or load, initial encounter | CPT/HCPCS: 93005 ==